=== PATIENT | female | born 1995 | race Caucasian/White ===

== ENCOUNTER 2017-12-31 09:59 | Emergency (ER) | payer BC ==
[~2017-12-31] VITALS: Ht 157.5 cm; Wt 68.0 kg
[~2017-12-31 09:59] MED LIST: AMOX-426 PO
[2017-12-31 10:09] VITALS: BP_SYST 165
--- NOTE | 2017-12-31 10:35 | NUR ---
Specimen for rapid strep collected and sent to lab.
--- NOTE | 2017-12-31 13:25 | NUR ---
Patient to ER bed H1 to gown for evaluation. Side rails up. Report given to Renetta JEAN.
--- NOTE | 2017-12-31 13:30 | NUR ---
ER Dr. Simeon at bedside examining patient.
--- NOTE | 2017-12-31 13:48 | NUR ---
Pt AAOx4 ambulated into ED c/o cold for past few days. Pt took nyquil and dayquil which relieved her symptoms of cough/sneezing. Pt states she still has a sore throat and 10/10 pain to throat. PMD prescribed amoxicillin, but pt states it "isn't working." Pt denies N/V/D. No other injuries/complaints per pt/noted. Mother at bedside. Will continue to monitor.
--- NOTE | 2017-12-31 14:05 | NUR ---
Lab at bedside collecting blood. Pt face turned pale and states "I feel dizzy, I think I'm going to pass out." Pt moved to bed in hallway in trendelenberg, warm blanket and juice provided. Pt states "I feel better." Pt breathing even and unlabored. Will continue to monitor.
[2017-12-31 14:25] LABS: HEMATOCRIT 40.7 % (36-48); HEMOGLOBIN 13.6 g/dL (12.0-16.0); MEAN CORPUSCULAR HEMOGLOBIN 29 pg (27-31); MEAN CORPUSCULAR HGB CONC 33 % (32-36); MEAN CORPUSCULAR VOLUME 87 fL (79.0-98.0); PLATELET COUNT (AUTO) 237 K/uL (130-430); RED BLOOD CELL COUNT(AUTO) 4.71 MIL/uL (4.2-6.2); RED CELL DISTRIBUTION WIDTH 12.5 % (9.0-15.0); WHITE BLOOD COUNT (AUTO) 10.4 K/uL (4.8-10.8)
[2017-12-31 14:42] LABS: CALCIUM 9.4 mg/dL (8.4-11.0); CREATININE 0.51 mg/dL (0.55-1.30); POTASSIUM 4.2 mmol/L (3.5-5.1)
[2017-12-31 14:47] LABS: ALBUMIN 3.9 g/dL (3.4-4.8); ATYPICAL LYMPHOCYTES % 10 % (0-0); BAND % (MANUAL) 1 % (0-6); BASOPHILS % (MANUAL) 0 % (0-2); EOSINOPHILS % (MANUAL) 0 % (0-7); LYMPHOCYTES % (MANUAL) 36 % (20-46); MONOCYTES % (MANUAL) 15 % (0-11); TOTAL BILIRUBIN 0.6 mg/dL (0.0-1.0)
--- NOTE | 2017-12-31 16:01 | NUR ---
Dr. Simeon at [facility] for revaluation.
--- NOTE | 2017-12-31 16:16 | NUR ---
Patient given written and verbal discharge instructions and verbalizes understanding. ER MD discussed with patient the results and treatment provided. Patient in stable condition. ID arm band removed. Rx of Tylenol with codeine elixir, chlorhexadine given. Patient educated on pain management and to follow up with PMD. Pain Scale 0/10. Opportunity for questions provided and answered. Medication side effect fact sheet provided.
[2017-12-31 16:21] VITALS: BP_SYST 124
== END 2017-12-31 16:16 | disposition home or self-care (01) ==
LOC: SED 09:59
DX: J02.8 Acute pharyngitis due to other specified organisms (principal); B97.89 Other viral agents as the cause of diseases classified elsewhere
CPT/HCPCS: 36415; 80053; 85007; 85027; 86308-TC; 86403; 87081; 99284